=== PATIENT | male | born 1945 | race Caucasian/White ===

== ENCOUNTER → 2018-11-10 | Day surgery (SDC) | payer MEDICARE, BC | LOC: MSO 09:46 | DX: H25.811 Combined forms of age-related cataract, right eye (principal); M19.90 Unspecified osteoarthritis, unspecified site; Z86.73 Personal history of transient ischemic attack (TIA), and cerebral infarction without residual deficits; Z79.82 Long term (current) use of aspirin | CPT/HCPCS: J0171; J2250 ==